=== PATIENT | male | born 1955 | race Caucasian/White ===

== ENCOUNTER 2019-04-26 22:13 | Inpatient (IN) | payer OTHER ==
[~2019-04-26] VITALS: Ht 170.2 cm; Wt 95.7 kg
[2019-04-26 22:14] VITALS: Ht 170.2 cm; Wt 95.7 kg
--- NOTE | 2019-04-26 22:24 | NUR ---
PT BIB [facility], FOR CHEST PAIN AND PALPTITATIONS SINCE 1800. PT IS INMATE AT [facility], CORRECTIONS OFFICERS AT BEDSIDE. PER MEDIC, PT WAS IN SVT ENROUTE, PT GIVEN 6 OF ADENO SINE W/ NO RESOLVE. PT GIVEN 12V OF ADENOSINE, RHYTHM CONVERTED. PT ALSO GIVEN 0.4MG SUBL NITRO EN ROUTE FOR CHEST PAIN. 18G EJ ON RIGHT SIDE ESTABLISHED EN ROUTE. PT REPORT NO OTHER COMPLAINTS. PT DENIES SOB. PT AWAKE AND ALERT, ANSWERING QUESTIONS APPROPRIATELY. PT PLACED ON DELIVERY MERCHANDISER AND SPO2. EKG AT BEDSIDE, PT NOW HAS SINUS TACHYCARDIA. NAD NOTED AT THIS TIME. WILL CONTINUE TO MONITOR.
--- NOTE | 2019-04-26 23:25 | NUR ---
PT AWAKE AND ALERT, REPORTS FEELING "GOOD". VSS, RESPS E/U, NAD NOTED AT THIS TIME. CORRECTIONS OFFICERS AT BEDSIDE. AWAITING PENDING RESULTS. WILL CONTINUE TO MONITOR.
[2019-04-26 23:27] LABS: AMPHETAMINE QUAL UR NONE DETECTED (See below)
[2019-04-26 23:32] LABS: CALCIUM 7.3 mg/dL (8.5-10.1); CARBON DIOXIDE 25.8 mmol/L (21-32); CREATININE SERUM 1.5 mg/dL (0.7-1.3); POTASSIUM SERUM 3.7 mmol/L (3.5-5.1)
[2019-04-26 23:45] LABS: BASOPHIL % 0.3 % (0-2)
[2019-04-26 23:46] LABS: BILIRUBIN TOTAL 0.6 mg/dL (0.20-1.00); TOTAL PROTEIN, SERUM 6.9 g/dL (6.4-8.2)
[2019-04-26 23:59] LABS: PLATELET COUNT 46 x10^3mcL (130-400)
--- NOTE | 2019-04-27 00:07 | NUR ---
PT RESTING IN POSITION OF COMFORT, NO ACUTE DISTRESS NOTED, RESP EVEN AND UNLABORED WITH GAURD AT PT SIDE.
[2019-04-27] MEDS ORDERED: METOPROLOL SUCC25 M2 PO (00:21)
[2019-04-27] MEDS ORDERED: PROTONIX TR40 M1 PO (00:22)
[2019-04-27] MEDS ORDERED: MORPHINE SULFAT15 M7 PO (00:23)
[2019-04-27] MEDS ORDERED: DILTIAZEM PO (00:24)
[2019-04-27] MEDS ORDERED: ELA10 PO (00:25)
[2019-04-27] MEDS ORDERED: VIS50 PO (00:26)
[2019-04-27] MEDS ORDERED: TRIAMCINOLONE (00:29)
[2019-04-27] MEDS ORDERED: [UNRECOGNIZED DRUG - OTHER] PR (00:31)
[2019-04-27] MEDS ORDERED: PROCTOCREAM-HC2.5% TOP (00:33)
[2019-04-27] MEDS ORDERED: FUROSEMIDE40 MG PO (00:33)
[2019-04-27] MEDS ORDERED: FLO4 PO (00:34)
[2019-04-27] MEDS ORDERED: ARTIFICIAL TEA1 EACH OP (00:35)
[2019-04-27] MEDS ORDERED: FUROSEMIDE20 MG PO (00:36)
[2019-04-27] MEDS ORDERED: LACTULOSE10 GM/152 PO (00:37)
[2019-04-27] MEDS ORDERED: TIVICAY50 MG PO (00:38)
[2019-04-27] MEDS ORDERED: CAPSAICIN HOT1 EACH TOP (00:38)
[2019-04-27] MEDS ORDERED: DESCOVY 200-251 EACH PO (00:39)
--- NOTE | 2019-04-27 00:52 | NUR ---
REPORT GIVEN TO RAISA BACON TO ASSUME CARE OF PT
--- NOTE | 2019-04-27 01:15 | NUR ---
PT ARRIVED ON THE FLOOR FROM ER VIA [facility] ACCOMPANIED BY NURSE AND 2 OFFICERS. PT IS FROM [facility]. HE IS ADMITTED FOR CHEST PAIN. HE IS ALERT,ORIENTED X4. LUNGS CTA. NO SOB ON ROOM AIR. HE DENIED HAVING CHEST PAIN AND PALPITATIONS AT THIS TIME. NO C/O ABDL DISCOMFORT. DENIED DYSURIA. PT STATED HE AMBULATES SHORT DISTANCES ONLY DUE TO " BACK ISSUES". W/ IV HL TO RT EJ INTACT. PT ORIENTED TO ROOM AND INSTRUCTED ON THE USE OF CALL LIGHT.
[2019-04-27 01:40] VITALS: BP 89/57
[2019-04-27 02:23] LABS: MAGNESIUM 1.9 mg/dL (1.8-2.4)
[2019-04-27 02:26] LABS: CHOLESTEROL/HDL RATIO 2.8
[2019-04-27 04:42] VITALS: BP 96/58
--- NOTE | 2019-04-27 05:41 | NUR ---
PT RESTING QUIETLY IN BED. HE SLEPT FAIRLY. HE HAD NO C/O CHEST PAIN AND PALPITATIONS SINCE HE ARRIVED ON THE FLOOR. HE REMAINS ALERT AND ORIENTED X4. ALL NEEDS ATTENDED TO.
--- NOTE | 2019-04-27 06:33 | NUR ---
[facility] CATH CARE DONE PER PROTOCOL.
--- NOTE | 2019-04-27 07:15 | NUR ---
RECEIVED PATIENT AWAKE/ALERT IN BED, REPORT CHEST PAIN IS BETTER, TELE #1 SR W/ HR 73; IV TO REJ INTACT AND SL NOTED. QUESTIONS ADDRESSED, BLE CUFFED TO BED. 2 GUARDS REMAIN AT BEDSIDE. CONT TO MONITOR.
--- NOTE | 2019-04-27 07:46 | NUR ---
PER GUARD THE RETIREMENT WILL BRING PATIENT'S HIV MEDS. INFORM THEM TO CALL RN WHEN AVAILABLE.
--- NOTE | 2019-04-27 09:20 | NUR ---
PATIENT RESTING IN BED CALM, NO COMPLAIN. GUARDS AT BEDSIDE STAND UP WHEN NURSE ENTER, ADMINISTERED ALL PO MEDS HELD METOPROLOL BP 103/54, HR 72 PATIENT GET OTHER BP MEDS. INFORM DR. BENTLEY TO CONTINUE PATIENT'S HIV DESCOVY AND TIVICAY BOUGHT IN BY OFFICER. PER SHEREE VILLA TO RESUME, WILL SEND TO PHARMACY TO VERIFY.
[2019-04-27 10:01] VITALS: BP 103/54
--- NOTE | 2019-04-27 10:25 | NUR ---
ECHOCARDIOGRAM PENDING-DONE 5-6 MONTHS AGO-[facility]
--- NOTE | 2019-04-27 10:41 | NUR ---
PER INSURANCE CLAIM REPRESENTATIVE AXEL REPORT THAT PATIENT HAS ECHO DONE AT [facility] 5 MOS AGO AND SHE WILL INFORM DR. TURNER.
--- NOTE | 2019-04-27 11:50 | NUR ---
PATIENT RESTING IN BED C/O BACK/LEGS PAIN 12/27 NORCO 1 TAB PO GIVEN, DESCOVY AND TIVICAY GIVEN, PATIENT REFUSED ANUSOL STATED NOT NEEDED AT THIS TIME. DR. TURNER AT BEDSIDE INTERVIEW PATIENT AND DISCUSS POC. INFORM PATIENT WILL CHANGE MEDS CARDIZEM TO 30MG DAILY AND METOPROLOL 25MG PO BID, LEXISCAN TOMORROW.
[2019-04-27 13:25] VITALS: BP 101/62
--- NOTE | 2019-04-27 14:04 | NUR ---
PATIENT LAYING IN BED NO ACUTE DISTRESS, NO C/O CHEST PAIN. MSCONTIN 15MG TAB PO GIVEN SCHEDULE. EXCHANGED 2 GUARDS AT THIS TIME. PATIENT DOESN'T NEED ANYTHING. CALL LIGHT WITHIN REACH.
[2019-04-27 14:22] LABS: UA SPECIFIC GRAVITY <=1.005 (1.005-1.035)
[2019-04-27 14:23] LABS: microscopic required? YES; urine erythrocyte TRACE (NEGATIVE)
[2019-04-27 16:22] VITALS: BP 102/54
--- NOTE | 2019-04-27 17:27 | NUR ---
PATIENT RESTING IN BED EYES CLOSED, NO DISTRESS NOTED. 2 GUARDS REMAIN AT BEDSIDE, CONT TO MONITOR.
--- NOTE | 2019-04-27 18:35 | NUR ---
PATIENT RESTING IN BED NO COMPLAIN, REINFORCE LEXISCAN TOMORROW, NO COFFEE OR CAFEINE FOR BREAKFAST. PATIENT VERBALIZE UNDERSTAND. 2 GUARDS AT BEDSIDE.
--- NOTE | 2019-04-27 19:32 | NUR ---
PT RECIEVED AAO REG RESP NO SOB V/S STABLE,KEPT CLEAN AN DRY TO TOUCH,HL TO RTEJ SITE PATENT AND INTACT,PT PT ON TELE MONITOR AND IN NSR NO ECTOPY OR CHEST PAIN AT THIS TIME,BED IN LOW POSITION AND LOCKED,CALL LIGHT EASY REACHED AND WILL CONTINUE TO MONITOR.
[2019-04-27 21:04] VITALS: BP 143/76
--- NOTE | 2019-04-28 00:41 | NUR ---
PT RESTING AT THIS TIME,WILL CONTINUE TO MONITOR.
[2019-04-28 06:08] VITALS: BP 127/88
--- NOTE | 2019-04-28 06:40 | NUR ---
PT HAD A RESTING NIGHT NO CHANGE AT THIS TIME,WILL CONTINUE TO MONITOR.
[2019-04-28 07:02] LABS: CALCIUM 7.9 mg/dL (8.5-10.1); CARBON DIOXIDE 23.9 mmol/L (21-32); CREATININE SERUM 1.3 mg/dL (0.7-1.3); POTASSIUM SERUM 4.1 mmol/L (3.5-5.1)
[2019-04-28 08:31] LABS: PLATELET COUNT 32 x10^3mcL (130-400)
--- NOTE | 2019-04-28 09:11 | NUR ---
PATIENT LAYING IN BED NO COMPLAIN, PO MEDS ADMINISTERED, HELD LOPRESSOR AND CARDIZEM FOR NM STRESS TEST, NEEDS MET. CALL LIGHT WITHIN REACH. REINFORCED PATIENT NOT TO DRINK OR EAT AFTER THIS. CALL LIGHT WITHIN REACH.
[2019-04-28 09:39] VITALS: BP 106/72
--- NOTE | 2019-04-28 12:18 | NUR ---
PREPARE PATIENT TO GO DOWN TO NUC-[facility] FOR STRESS TEST, CNC MECHANIC WAS INFORM PATIENT OFF THE UNIT.2 GUARDS ACCOMPANIED PATIENT.
[2019-04-28 13:56] LABS: BAND NEUTROPHIL 4 % (0-10); BASOPHIL 0 % (0-2); MONOCYTE 8 % (0-7); SEGMENTED NEUTROPHILS 51 % (37-75)
[2019-04-28 13:57] LABS: PLATELET MORPHOLOGY PLATELETS DECREASED; rbc morphology (normal/abnorm) ABNORMAL (NORMAL)
--- NOTE | 2019-04-28 14:16 | NUR ---
LEXISCAN STRESS TEST DONE
--- NOTE | 2019-04-28 14:27 | NUR ---
PATIENT BACK FROM [facility], C/O ABOUT HIS LUNCH DOWN IN [facility] BUT EXPLAINED TO PATIENT; PATIENT UNDERSTAND. MS CONTIN 1 TAB PO GIVEN FOR C/O 01/26 BACK PAIN. NEEDS MET. CALL LIGHT WITHIN REACH.
[2019-04-28 16:48] VITALS: BP 118/72
--- NOTE | 2019-04-28 17:00 | NUR ---
PATIENT RESTING IN BED WATCHING TV, NO COMPLAIN. REPLACE BATTERY FOR TELE BOX, NSR HR 67, BBB. CONT TO MONITOR. CALL LIGHT WITHIN REACH.
--- NOTE | 2019-04-28 18:50 | NUR ---
PATIENT RESTING IN BED WATCHING TV, NO COMPLAIN. REJ INTACT AND SL NOTED. NEEDS MET. GUARDS REMAIN AT BEDSIDE. CALL LIGHT WITHIN REACH.
--- NOTE | 2019-04-28 20:00 | NUR ---
RECEIVED REPORT FROM DAY SHIFT NURSE, AVA BACON. PT IS A/O X4. SPEECH IS CLEAR. DENIES WOLFE. TELE #1 READING SR 74 W BBB. DENIES CP AT THIS TIME. VS ARE FOLLOWED: TEMP 99F, HR 72, RR 18, BP 124/76 (89), SAO2 99%. PULSES ARE PALPABLE. RLE TRACE EDEMA. BREATHING IS EVEN AND UNLABORED ON RA. LUNG SOUNDS ARE DIMINISHED ON BLL. BS ACTIVE IN ALL 4Q. ABD ROUND AND SOFT. URINAL AT BEDSIDE. USES WHEELCHAIR FOR LONG DISTANCES. SKIN INTACT. C/O OF 6/10 PAIN ON LOWER BACK. WILL MEDICATE PER MAR ORDER. BED IN LOWEST POSITION. CALL LIGHT WITHIN REACH. ENCOURAGED PT TO USE CALL LIGHT IF IN NEED OF ANY ASSISTANCE OR HAVING ANY DISCOMFORT. CIM GUARDS AT BEDSIDE.
[2019-04-28 20:15] VITALS: BP 124/76
--- NOTE | 2019-04-28 22:31 | NUR ---
ROUTINE MEDICATIONS WERE ADMINISTERED AND TOLERATED WELL. PT STATED PAIN IS NOW A 2/10 AFTER ADMIN OF MS CONTIN. WILL CONTINUE TO MONITOR. GUARDS AT BEDSIDE. CALL LIGHT WITHIN REACH.
--- NOTE | 2019-04-29 00:50 | NUR ---
PT IS RESTING IN BED COMFORTABLY WATCHING TV. GUARDS AT BEDSIDE. DENIES PAIN AT THIS TIME. BREATHING IS EVEN AND UNLABORED. DENIES SOB. DENIES CP. BED IN LOWEST POSITION. CALL LIGHT WITHIN REACH. WILL CONTINUE TO MONITOR.
--- NOTE | 2019-04-29 03:01 | NUR ---
PT IS RESTING WITH EYES CLOSED, BUT EASILY AROUSABLE WHEN SPOKEN TO. BREATHING IS EVEN AND UNLABORED ON RA. BED IN LOWEST POSITION. CALL LIGHT WITHIN REACH. GUARDS AT BEDSIDE. WILL CONTINUE TO MONITOR.
[2019-04-29 05:34] VITALS: BP 115/73
--- NOTE | 2019-04-29 05:53 | NUR ---
PT SLEPT THROUGHOUT THE NIGHT. PT COMPLIED WITH NURSING CARE THROUGHOUT THE SHIFT WITH NO ACUTE EVENTS OVERNIGHT. COMFORT AND SAFETY MEASURES MAINTAINED. ALL NEEDS ASSESSED AND ATTENDED TO. GUARDS AT BEDSIDE. WILL CONTINUE TO MONITOR AND ENDORSE CARE TO DAY SHIFT NURSE.
--- NOTE | 2019-04-29 07:24 | NUR ---
ENDORSED CARE TO DAY SHIFT NURSE
[2019-04-29 08:55] VITALS: BP 119/72
--- NOTE | 2019-04-29 10:42 | NUR ---
RECEIVED PATIENT ALERT AND ORIENTED TIMES FOUR. PATIENT WITH GAURDS AT BEDSIDE AND SECURITY MAINTAINED. PATIENT HAS CLEAR BREATH SOUNDS AND DENIES CHEST PAIN OR SOB AT THIS TIME. PATIENT HAS SOME TRACE EDEMA TO THE LOWER EXTREMITIES AND HAS BEEN ON HIV MEDICATIONS AND CARDIAC MEDICATIONS IDNICATED. PATIENT IS AWARE OF HIS CHANGE OF MEDICATION FOR THE HEART AND STATES HE HAS FEELING BETTER AND WANTS TO GO BACK HOME TO [facility]. PATIENT HAS VITALS AT THIS TIME AT 97.8, 67, 18, 119/72, 84 MAP AND 98% ON ROOM AIR. PATIENT HAS BEEN AMBULATORY AND DENIES ANY DISTRESS AT THIS TIME. WILL CONTINUE TO MONITOR AND HAS NOT YET BEEN SEEN BY DR BENTLEY. HX OF HIV, CAD, CHRONIC BACK PAIN , INSOMNIA, HEMORROIDS REFUSED THE ANUSOL CREAM TODAY AND STATES HE IS ALL GOOD AT THIS TIME.
[2019-04-29 11:57] VITALS: BP 119/72
[2019-04-29 12:21] VITALS: BP 106/72
--- NOTE | 2019-04-29 13:21 | NUR ---
GAVE DISCHARGE PAPERWORK TO [facility] AND IV TO THE RIGHT JUGULAR DISCONTINUED AND PRESSURE APPLIED AND THEN PRESSURE DRESSING. NO ACTIVE BLEEDING NOTED. PATIENT ANXIOUS TO GO BACK TO [facility]. WILL NEED TO AWAIT THE [facility] TO BRING IN HIS WHEELCHAIR FOR TRANSPORT INDICATED.
--- NOTE | 2019-04-29 13:51 | NUR ---
LEFT WITHOUT GIVING THE NURSE NOTICE WITH [facility]ERR[facility] THE PATIENT HAS HIS WHEELCHAIR BROUGHT TO HIM FOR TRANSFER. WAS NOT ABLE TO GIVE THE MS CONTIN PLANED. PATIENT WAS IN NO DISTRESS AT TIME OF DISCHARGE.
== END 2019-04-29 15:06 | disposition other institution (70) | DRG 309 ==
LOC: ED 22:13 → DU 04-27 00:04
PROVIDERS: Emergency Medicine; ADMIT Internal Medicine
DX: I47.1 Supraventricular tachycardia (principal); D61.818 Other pancytopenia; E83.51 Hypocalcemia; I25.10 Atherosclerotic heart disease of native coronary artery without angina pectoris; F41.8 Other specified anxiety disorders; K74.60 Unspecified cirrhosis of liver; I10 Essential (primary) hypertension; G47.00 Insomnia, unspecified; Z68.33 Body mass index [BMI] 33.0-33.9, adult; Z88.6 Allergy status to analgesic agent; Z88.8 Allergy status to other drugs, medicaments and biological substances; Z79.899 Other long term (current) drug therapy
CPT/HCPCS: A9500; C9113; G0378; J2785; Q0092

== ENCOUNTER 2019-06-11 02:25 | Inpatient (IN) | payer OTHER ==
[~2019-06-11] VITALS: Ht 170.2 cm; Wt 95.3 kg
[~2019-06-11 02:25] MED LIST: ARTIFICIAL TEA1 EACH OP; CAPSAICIN HOT1 EACH TOP; DESCOVY 200-251 EACH PO; DILTIAZEM PO; ELA10 PO; FLO4 PO; FUROSEMIDE20 MG PO; FUROSEMIDE40 MG PO; LACTULOSE10 GM/152 PO; METOPROLOL SUCC25 M2 PO; MORPHINE SULFAT15 M7 PO; PROCTOCREAM-HC2.5% TOP; PROTONIX TR40 M1 PO; TIVICAY50 MG PO; TRIAMCINOLONE; VIS50 PO; [UNRECOGNIZED DRUG - OTHER] PR
[2019-06-11 02:28] VITALS: Ht 170.2 cm; Wt 95.3 kg
[2019-06-11 03:07] LABS: CALCIUM 8.3 mg/dL (8.5-10.1); CARBON DIOXIDE 31.7 mmol/L (21-32); CREATININE SERUM 1.8 mg/dL (0.7-1.3); POTASSIUM SERUM 4.4 mmol/L (3.5-5.1)
[2019-06-11 03:09] LABS: BASOPHIL % 0.3 % (0-2)
[2019-06-11 03:10] LABS: RED CELL DISTRIBUTION WIDTH 15.9 % (11.5-14.5)
[2019-06-11 03:15] LABS: PLATELET COUNT 44 x10^3mcL (130-400)
[2019-06-11 03:19] LABS: BILIRUBIN TOTAL 0.45 mg/dL (0.20-1.00); TOTAL PROTEIN, SERUM 7.4 g/dL (6.4-8.2)
[2019-06-11 03:20] LABS: ALBUMIN 3.3 g/dL (3.4-5.0)
[2019-06-11] MEDS ORDERED: BACOO OD (03:46)
[2019-06-11] MEDS ORDERED: MIRTAZAPINE15 M2 PO (03:46)
[2019-06-11] MEDS ORDERED: REMERON30 MG PO (03:47)
[2019-06-11] MEDS ORDERED: PROSCAR5 MG PO (03:48)
[2019-06-11] MEDS ORDERED: ARTIFICIAL TEA1 EACH OP (03:48)
[2019-06-11 05:46] LABS: AMPHETAMINE QUAL UR NONE DETECTED (See below)
[2019-06-11 06:53] LABS: UA SPECIFIC GRAVITY <=1.005 (1.005-1.035); microscopic required? YES; urine erythrocyte TRACE (NEGATIVE)
[2019-06-11 07:41] VITALS: BP 110/59
[2019-06-11 10:00] LABS: MAGNESIUM 2.2 mg/dL (1.8-2.4)
[2019-06-11 13:38] VITALS: BP 104/53
[2019-06-11 16:47] VITALS: BP 94/67
[2019-06-11 17:28] VITALS: BP 102/72
[2019-06-11 20:46] VITALS: BP 112/69
[2019-06-12 06:17] VITALS: BP 141/75
[2019-06-12 07:29] LABS: CALCIUM 7.9 mg/dL (8.5-10.1); CARBON DIOXIDE 25.4 mmol/L (21-32); CREATININE SERUM 1.3 mg/dL (0.7-1.3); POTASSIUM SERUM 3.9 mmol/L (3.5-5.1)
[2019-06-12 07:45] LABS: PLATELET COUNT 35 x10^3mcL (130-400); RED CELL DISTRIBUTION WIDTH 15.8 % (11.5-14.5)
[2019-06-12 09:49] VITALS: BP 118/68
[2019-06-12 11:40] LABS: BAND NEUTROPHIL 5 % (0-10); BASOPHIL 0 % (0-2); MONOCYTE 10 % (0-7); SEGMENTED NEUTROPHILS 53 % (37-75)
[2019-06-12 11:41] LABS: rbc morphology (normal/abnorm) ABNORMAL (NORMAL)
[2019-06-12 11:42] LABS: PLATELET MORPHOLOGY PLATELETS DECREASED
[2019-06-12 13:20] VITALS: BP 122/71
[2019-06-12 16:31] VITALS: BP 129/69
== END 2019-06-12 18:40 | disposition other institution (70) | DRG 281 ==
LOC: ED 02:25 → DU 06:31
PROVIDERS: Emergency Medicine; ADMIT Internal Medicine
DX: I21.4 Non-ST elevation (NSTEMI) myocardial infarction (principal); I47.1 Supraventricular tachycardia; K74.60 Unspecified cirrhosis of liver; I45.10 Unspecified right bundle-branch block; N18.3 Chronic kidney disease, stage 3 (moderate); I12.9 Hypertensive chronic kidney disease with stage 1 through stage 4 chronic kidney disease, or unspecified chronic kidney disease; E11.22 Type 2 diabetes mellitus with diabetic chronic kidney disease; G89.29 Other chronic pain; M54.9 Dorsalgia, unspecified; I25.10 Atherosclerotic heart disease of native coronary artery without angina pectoris; Z88.6 Allergy status to analgesic agent; Z87.11 Personal history of peptic ulcer disease; Z79.899 Other long term (current) drug therapy
CPT/HCPCS: 82962; G0378; J0153; J2270; J7030; Q0092

== ENCOUNTER 2020-05-11 08:00 | Day surgery (SDC) | payer OTHER ==
[~2020-05-11] VITALS: Ht 17.8 cm; Wt 124.7 kg
[~2020-05-11 08:00] MED LIST changes: +BACOO OD; +MIRTAZAPINE15 M2 PO; +PROSCAR5 MG PO; +REMERON30 MG PO
[2020-05-11 09:16] VITALS: BP 123/70
[2020-05-11 17:16] VITALS: BP 116/67
== END 2020-05-11 12:35 | disposition home or self-care (01) ==
LOC: GI 08:00 → OR 10:00 → GI 12:35
PROVIDERS: ATTEND Internal Medicine Gastroenterology
DX: I85.00 Esophageal varices without bleeding (principal); R60.9 Edema, unspecified; K31.7 Polyp of stomach and duodenum; K25.9 Gastric ulcer, unspecified as acute or chronic, without hemorrhage or perforation; B20 Human immunodeficiency virus [HIV] disease; K74.60 Unspecified cirrhosis of liver; Z87.19 Personal history of other diseases of the digestive system
CPT/HCPCS: 43235; J1200; J1610; J2250; J2310; J3010; J3490